=== PATIENT | female | born 1970 | race Caucasian/White ===

== ENCOUNTER 2017-08-22 08:03 | Day surgery (SDC) | payer MEDICAID ==
[2017-08-22] MEDS ORDERED: CEFAZOLIN 2 GM/50 ML (PMX) 50 ML IVPB (11:30)
[2017-08-22] MEDS ORDERED: SOD CHLORIDE 0.9% 1,000 ML IV (11:30)
[2017-08-22] MEDS ORDERED: MIDAZOLAM 1 MG/ML 2 ML INJ (12:12)
[2017-08-22] MEDS ORDERED: CEFAZOLIN 1 GM INJ (13:03)
[2017-08-22] MEDS ORDERED: PROPOFOL 20 ML (13:03)
[2017-08-22] MEDS ORDERED: ONDANSETRON 4 MG INJ (13:03)
[2017-08-22] MEDS ORDERED: LIDOCAINE 2% (SDV) 5 ML INJ (13:03)
[2017-08-22] MEDS ORDERED: PHENYLephrine (100 MCG/ML) 5ML SYG (13:08)
[2017-08-22] MEDS: HYDROCODONE/APAP (7.5/325) TAB PO (14:58)
== END 2017-08-22 15:18 | disposition home or self-care (01) ==
LOC: SDS 08:03
DX: D05.12 Intraductal carcinoma in situ of left breast (principal)
CPT/HCPCS: 19101; 88307